=== PATIENT | male | born 1960 | race American Indian/Alaskan Native ===

== ENCOUNTER 2016-09-01 09:24 | Emergency (ER) | payer BC, MEDICARE ==
[2016-09-01 09:43] VITALS: BP 135/87
[2016-09-01 10:03] LABS: Basophils % (Auto) 0.9 % (0.0-1.8); Eosinophils % (Auto) 3.6 % (0.0-4.3); Hematocrit 42.9 % (35.5-45.6); Hemoglobin 14.9 gm/dl (11.8-15.2); Mean Corpuscular HGB Conc 35 % (32-34); Mean Corpuscular Hemoglobin 31 pg (28-32); Mean Corpuscular Volume 88 fl (84-94); Platelet Count 165 K/mm3 (140-440); Red Blood Count 4.87 M/mm3 (3.65-5.03); Red Cell Distribution Width 14.1 % (13.2-15.2); White Blood Count 5.8 K/mm3 (4.5-11.0)
[2016-09-01 10:15] LABS: INR 0.91 (0.87-1.13)
[2016-09-01 10:16] LABS: Partial Thromboplastin Time 27.7 Sec. (24.2-36.6)
[2016-09-01 10:21] LABS: Anion Gap 18 mmol/L; Blood Urea Nitrogen 6 mg/dL (9-20); Calcium 9.4 mg/dL (8.4-10.2); Carbon Dioxide 22 mmol/L (22-30); Glucose 135 mg/dL (75-100); Potassium 3.7 mmol/L (3.6-5.0); Sodium 141 mmol/L (137-145)
== END 2016-09-01 10:50 | disposition left against medical advice (07) ==
LOC: ED 09:24
DX: R07.9 Chest pain, unspecified (principal); Z53.21 Procedure and treatment not carried out due to patient leaving prior to being seen by health care provider
CPT/HCPCS: 36415; 80048; 84484; 85025; 85610; 85730; 93005; 93010

== ENCOUNTER 2016-11-28 10:10 | Emergency (ER) | payer OTHER, MEDICARE ==
[2016-11-28] MEDS ORDERED: MOTRIN PO ONE (13:34)
[2016-11-28] MEDS ORDERED: FLEXERIL PO ONE (13:34)
[2016-11-28 13:51] VITALS: BP 129/74
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
== END 2016-11-28 14:02 | disposition home or self-care (01) ==
LOC: ED 10:10
DX: S46.912A Strain of unspecified muscle, fascia and tendon at shoulder and upper arm level, left arm, initial encounter (principal); I10 Essential (primary) hypertension; I25.2 Old myocardial infarction; I25.10 Atherosclerotic heart disease of native coronary artery without angina pectoris; Z95.1 Presence of aortocoronary bypass graft; Z79.82 Long term (current) use of aspirin; V89.2XXA Person injured in unspecified motor-vehicle accident, traffic, initial encounter; Y93.89 Activity, other specified; Y99.9 Unspecified external cause status; Y92.410 Unspecified street and highway as the place of occurrence of the external cause
CPT/HCPCS: 99282

== ENCOUNTER 2020-04-15 14:26 | Emergency (ER) | payer MEDICARE ==
[2020-04-15 15:19] VITALS: BP 154/85
--- NOTE | 2020-04-15 17:43 | Emergency Department Report ---
ED Back Pain/Injury HPI - General Chief Complaint: Back Pain/Injury Stated Complaint: BACK PAIN, MUSCLE SPASMS Time Seen by Provider: 04/15/20 17:38 Source: patient Limitations: No Limitations - History of Present Illness Initial Comments: Patient is a 59-year-old male presents emergency room with complaints of back spasms that began yesterday. He states that he feels it above the right shoulder blade. He states it feels like the muscle is jumping. He states he had this similar symptoms approximately 6 years ago and got a shot which improved his symptoms. He denies any fall or injury. He denies any numbness, weakness, bowel or bladder incontinence. He denies any fever, nausea, vomiting, diarrhea, hematuria, dysuria, urinary retention, chest pain, shortness of anish th, cough. He denies any steroid use or history of cancer. He has a past medical history of CHF, MT, defibrillator. He denies any medication allergies. - Related Data Home Medications Medication Instructions Recorded Confirmed Last Taken Nitroglycerin [Nitrostat] 0.4 mg SL Q15MIN PRN 02/07/14 02/28/14 02/07/14 Previous Rx's Medication Instructions Recorded Last Taken Type Aspirin EC [Halfprin EC] 81 mg PO QDAY #30 tablet 02/11/14 02/28/14 Rx Metoprolol Xl [Metoprolol 25 mg PO QDAY #30 tablet 02/11/14 02/28/14 Rx SUCCINATE ER TAB] Rosuvastatin (Nf) [Crestor] 20 mg PO QHS #30 tablet 02/11/14 02/27/14 Rx Spironolactone [Aldactone] 12.5 mg PO QDAY #30 tablet 02/11/14 02/28/14 Rx Ticagrelor [Brilinta] 90 mg PO BID #60 tablet 02/11/14 02/28/14 Rx lisinopriL [Zestril TAB] 2.5 mg PO QDAY #30 tablet 02/11/14 02/28/14 Rx oxyCODONE /ACETAMINOPHEN [Percocet 1 tab PO Q6H PRN #10 tablet 02/11/14 02/12/14 Rx 5/325 mg] Cyclobenzaprine [Flexeril] 10 mg PO QHS PRN #20 tablet 11/28/16 Unknown Rx Ibuprofen [Motrin] 800 mg PO Q8HR PRN #40 tablet 11/28/16 Unknown Rx Acetaminophen [Tylenol] 650 mg PO Q8HR PRN #20 capsule 04/15/20 Unknown Rx tiZANidine [Zanaflex 4mg TAB] 4 mg PO Q8HR PRN #12 tablet 04/15/20 Unknown Rx Allergies Allergy/AdvReac Type Severity Reaction Status Date / Time No Known Allergies Allergy Verified 09/01/16 09:39 ED Review of Systems ROS: Stated complaint: BACK PAIN, MUSCLE SPASMS Other details as noted in HPI Comment: All other systems reviewed and negative ED Past Medical Hx - Past Medical History Previous Medical History?: Yes Hx Hypertension: Yes (this admission) Hx Heart Attack/AMI: Yes (X 2) Hx Congestive Heart Failure: No Hx Diabetes: No Hx Kidney Stones: Yes Hx Asthma: No Hx COPD: No Hx HIV: No Additional medical history: CAD, ICD, STENTS - Surgical History Past Surgical History?: Yes Hx Coronary Stent: Yes Hx Internal Defibrillator: Yes - Social History Smoking Status: Never Smoker Substance Use Type: Alcohol - Medications Home Medications: Home Medications Medication Instructions Recorded Confirmed Last Taken Type Nitroglycerin [Nitrostat] 0.4 mg SL Q15MIN PRN 02/07/14 02/28/14 02/07/14 History Aspirin EC [Halfprin EC] 81 mg PO QDAY #30 tablet 02/11/14 02/28/14 02/28/14 Rx Metoprolol Xl [Metoprolol 25 mg PO QDAY #30 tablet 02/11/14 02/28/14 02/28/14 Rx SUCCINATE ER TAB] Rosuvastatin (Nf) [Crestor] 20 mg PO QHS #30 tablet 02/11/14 02/28/14 02/27/14 Rx Spironolactone [Aldactone] 12.5 mg PO QDAY #30 tablet 02/11/14 02/28/14 02/28/14 Rx Ticagrelor [Brilinta] 90 mg PO BID #60 tablet 02/11/14 02/28/14 02/28/14 Rx lisinopriL [Zestril TAB] 2.5 mg PO QDAY #30 tablet 02/11/14 02/28/14 02/28/14 Rx oxyCODONE /ACETAMINOPHEN [Percocet 1 tab PO Q6H PRN #10 tablet 02/11/14 02/28/14 02/12/14 Rx 5/325 mg] Cyclobenzaprine [Flexeril] 10 mg PO QHS PRN #20 tablet 11/28/16 Unknown Rx Ibuprofen [Motrin] 800 mg PO Q8HR PRN #40 tablet 11/28/16 Unknown Rx Acetaminophen [Tylenol] 650 mg PO Q8HR PRN #20 capsule 04/15/20 Unknown Rx tiZANidine [Zanaflex 4mg TAB] 4 mg PO Q8HR PRN #12 tablet 04/15/20 Unknown Rx ED Physical Exam - General Limitations: No Limitations General appearance: alert, in no apparent distress - Head Head exam: Present: atraumatic, normocephalic - Eye Eye exam: Present: normal appearance - ENT ENT exam: Present: mucous membranes moist - Neck Neck exam: Present: normal inspection, full ROM. Absent: tenderness - Respiratory Respiratory exam: Present: normal lung sounds bilaterally. Absent: respiratory distress, wheezes, rales, rhonchi, stridor, chest wall tenderness, accessory muscle use, decreased breath sounds, prolonged expiratory - Cardiovascular Cardiovascular Exam: Present: regular rate, normal rhythm, normal heart sounds. Absent: systolic murmur, diastolic murmur, rubs, gallop - Extremities Exam Extremities exam: Present: other (ttp over the right trapezius, no crepitus,no deformity, no ecchymosis, no winging of the scapula, able to lift both arms above the head, neurovascularly intact) - Back Exam Back exam: Present: normal inspection, full ROM. Absent: paraspinal tenderness, vertebral tenderness - Neurological Exam Neurological exam: Present: alert, oriented X3, CN II-XII intact, normal gait. Absent: motor sensory deficit - Psychiatric Psychiatric exam: Present: normal affect, normal mood - Skin Skin exam: Present: warm, dry, intact ED Course Vital Signs 04/15/20 15:16 Temperature 98.6 F Pulse Rate 65 Respiratory 16 Rate Blood Pressure 154/85 [Right] O2 Sat by Pulse 98 Oximetry ED Medical Decision Making - Medical Decision Making Patient is a 59-year-old male presents emergency room with complaints of back spasms that began yesterday. He states that he feels it above the right shoulder blade. He states it feels like the muscle is jumping. He states he had this similar symptoms approximately 6 years ago and got a shot which improved his symptoms. He denies any fall or injury. He denies any numbness, weakness, bowel or bladder incontinence. He denies any fever, nausea, vomiting, diarrhea, hematuria, dysuria, urinary retention, chest pain, shortness of breath, cough. He denies any steroid use or history of cancer. He has a past medical history of CHF, MT, defibrillator. He denies any medication allergies. VSS. on exam: ttp over the right trapezius, no crepitus,no deformity, no ecchymosis, no winging of the scapula, able to lift both arms above the head, neurovascularly intact, no focal neuro deficits. Examination appears most consistent with muscle strain versus muscle spasm. He has no red flag warning signs of back pain, no trauma, no unexplained weight loss, no neuro deficits, no fever, no IV drug use, no steroid use, no history of cancer. Patient given prescription for Tylenol and Zanaflex. Advised patient Please use medication as prescribed. Do not drive or operate machinery while taking muscle x-ray. May use ice pack, heating pad, rest, Epson salt bath. Follow-up with a primary care doctor for reexamination. Return to emergency room for new or worsening symptoms. Critical care attestation.: If time is entered above; I have spent that time in minutes in the direct care of this critically ill patient, excluding procedure time. ED Disposition Clinical Impression: Muscle spasm Strain of right trapezius muscle Qualifiers: Encounter type: initial encounter Qualified Code(s): S46.811A - Strain of other muscles, fascia and tendons at shoulder and upper arm level, right arm, initial encounter Disposition: DC-01 TO HOME OR SELFCARE Is pt being admited?: No Does the pt Need Aspirin: No Condition: Stable Instructions: Muscle Cramps and Spasms, [id number] Additional Instructions: Please use medication as prescribed. Do not drive or operate machinery while taking muscle x-ray. May use ice pack, heating pad, rest, Epson salt bath. Follow-up with a primary care doctor for reexamination. Return to emergency room for new or worsening symptoms. Prescriptions: Acetaminophen [Tylenol] 650 mg PO Q8HR PRN #20 capsule PRN Reason: pain tiZANidine [Zanaflex 4mg TAB] 4 mg PO Q8HR PRN #12 tablet PRN Reason: muscle spasm Referrals: PRIMARY CARE, [Primary Care Provider] - 2-3 Days Time of Disposition: 17:42 Print Language: MALTESE
== END 2020-04-15 17:52 | disposition home or self-care (01) ==
LOC: ED 14:26
DX: S46.811A Strain of other muscles, fascia and tendons at shoulder and upper arm level, right arm, initial encounter (principal); M62.830 Muscle spasm of back; I10 Essential (primary) hypertension; I25.2 Old myocardial infarction; N20.0 Calculus of kidney; Z98.890 Other specified postprocedural states; Z79.82 Long term (current) use of aspirin; Z79.899 Other long term (current) drug therapy; X58.XXXA Exposure to other specified factors, initial encounter; Y93.89 Activity, other specified; Y92.89 Other specified places as the place of occurrence of the external cause; Y99.8 Other external cause status
CPT/HCPCS: 99281